=== PATIENT | male | born 1945 | race Caucasian/White ===

== ENCOUNTER → 2018-01-25 | Outpatient (CLI) | payer OTHER | LOC: SLEEPLAB 14:24 | DX: G47.33 Obstructive sleep apnea (adult) (pediatric) (principal) ==

== ENCOUNTER 2019-10-25 05:50 | Day surgery (SDC) | payer OTHER ==
[2019-10-17 13:12] LABS: URINE BILIRUBIN NEGATIVE (Negative); URINE BLOOD NEGATIVE (Negative); URINE CLARITY CLEAR; URINE COLOR YELLOW; URINE GLUCOSE-RANDOM* NEGATIVE (Negative); URINE KETONES NEGATIVE (Negative); URINE LEUKOCYTES-REFLEX NEGATIVE (Negative); URINE NITRITE-REFLEX NEGATIVE (Negative); URINE PROTEIN (DIPSTICK) NEGATIVE (Negative); URINE SPECIFIC GRAVITY 1.015 (1.005-1.035); URINE UROBILINOGEN 0.2 E.U./dl (0.2-1.0)
[2019-10-17 13:14] LABS: HEMATOCRIT 45.4 % (42.0-52.0); HEMOGLOBIN 14.9 gm/dL (14.0-18.0); MCH 30.4 pg (26.0-34.0); MCHC 32.8 g/dL (28.0-37.0); MCV 92.8 fL (80.0-100.0); RBC 4.89 mil/uL (4.50-6.00); RDW 14.2 % (10.5-14.5); WBC 5.9 thou/uL (4.0-11.0)
[2019-10-17 13:24] LABS: PROTIME 10.3 Seconds (9.3-11.4)
[2019-10-17 13:27] LABS: ALBUMIN 3.8 g/dL (3.4-5.0); CALCIUM 8.4 mg/dL (8.5-10.1); CREATININE 1.1 mg/dL (0.7-1.3); POTASSIUM 4.4 mmol/L (3.5-5.1)
[~2019-10-25] VITALS: Ht 185.4 cm; Wt 95.7 kg
--- NOTE | ~2019-10-25 | O ---
[facility] [place] [address] OPERATIVE REPORT Name: PRIETO ARIAS Room #: 150-7 [facility].R.#: [id number] Admission: 10/25/19 Attend Phys: Jeremy Espitia MD Discharge: Date of : 43 Report #: [id number] THIS REPORT FOR: cc: Hector Brenner MD, Rene P. MD Abraham,Jeremy Friedman MD ~ CC: Hector Espitia DATE OF SERVICE: 10/25/2019 PREOPERATIVE DIAGNOSIS: Right knee osteoarthritis. POSTOPERATIVE DIAGNOSIS: Right knee osteoarthritis. PROCEDURE: Right total knee arthroplasty using Navio robotic assistance. SURGEON: Jeremy Espitia MD. PULP OPERATOR: Kaitlin Salinas PA-C. INDICATIONS FOR PULP OPERATOR: Throughout the case, extensive retraction and manipulation of the knee was required. This was afforded to me by my under water assistant. ANESTHESIA: LMA with an adductor canal block. IMPLANTS: [employer] size 4 Legion cobalt chrome, size 7 posterior stabilized femur, a size 6 tibia, size 9 constrained polyethylene and size 35 patella. TOURNIQUET TIME: 59 minutes. ESTIMATED BLOOD LOSS: 25 mL. COMPLICATIONS: None. SPECIMENS: None. CONDITION UPON LEAVING THE OPERATING ROOM: Stable. INDICATIONS FOR PROCEDURE: The patient is a 74-year-old gentleman with severe right knee osteoarthritis. He failed conservative measures for this and elected for right total knee arthroplasty. DESCRIPTION OF PROCEDURE: Risks, benefits, alternatives, complications were discussed in detail with the patient including but not limited to risk of [facility] [address] [place] [address] OPERATIVE REPORT Name: PRIETO ARIAS Room #: 150-7 [facility] M.R.#: [id number] Admission: 10/25/19 Attend Phys: Jeremy Espitia MD Discharge: Date of : 43 Report #: [id number] anesthesia, risk of damage to nerves, arteries, blood vessels, risk for infection, bleeding, risk of continued knee pain, need for reoperation. Informed consent was obtained from the patient. Right knee was appropriately marked in the preoperative holding area. IV Ancef was given for preoperative antibiotics. Adductor canal block was placed by Anesthesia. He was brought to the operating room and placed in supine position on operating room table. LMA anesthesia was induced without complication. Tourniquet was placed on the right thigh. Right lower extremity was prepped and draped in normal sterile fashion. Timeout was performed properly identifying the patient and procedure as well as instrumentation and implants. All in the operating room were in agreement. Right lower extremity was exsanguinated, tourniquet was inflated. Tourniquet time was 59 minutes. Standard midline approach to knee was made with 10 blade through the skin. Dissection was taken down sharply to the fascia and deep flaps were developed medially and laterally. Fresh 10 blade was used to make a medial parapatellar arthrotomy and the knee was inspected. There was severe medial compartment osteoarthritis with moderate patellofemoral involvement. ACL and PCL were removed sharply. Reference pins were placed in the femur and the tibia and the knee was then digitally mapped using the [employer] robotic system. Intraoperative plan was made and sized to size 7 femur with a 6 tibia and a size 11 spacer. After acceptance of the intraoperative plan, the distal femoral cut was made with a Navio fortunato. The 4-in-1 cutting block was then placed on the femur. Anterior, posterior and chamfer cuts were made. Attention was turned to the tibia. Medial and lateral meniscus were removed with Bovie cautery. Tibial resection guide was pinned in place using the Navio for placement and tibial resection was made. After this, flexion and extension gaps were checked and found to be somewhat tight medially in flexion and a limited medial release was performed using the pie crust technique. This balanced the knee well. The tibia was sized, found to be a size 6. A size 6 tibial trial was placed, pinned and punched. A size 7 femoral trial was placed and box cut was made. This was then trialed with a size 9 polyethylene. Knee was taken through range of motion, found to have a millimeter laxity medially throughout range of motion and laterally demonstrated 2-3 mm of laxity and it was felt we could make up for this with a constrained implant. After this, 9 mm was resected from the posterior surface of the patella and a size 35 patellar trial button was placed. Knee was taken through range of motion, found to be stable, found to have good patellar tracking. Trial components were removed. Bony ends were thoroughly irrigated with normal saline. Final size 6 tibia, size 7 Legion cobalt chrome posterior stabilized femur and a size 35 patella were cemented in place using standard cementation techniques. While the cement cured, a periarticular injection consisting of morphine, ropivacaine, epinephrine and Toradol was placed around the knee joint capsule. After the cement cured, tourniquet was deflated. Hemostasis was obtained with Bovie cautery. A final size 9 constrained polyethylene was placed. A gram of vancomycin was placed deep in the joint. The fascia was closed with 0 Vicryl, skin was closed with 2-0 Vicryl, 3-0 Monocryl. Dermabond and a GWEN dressing was applied. The patient [address] [address] OPERATIVE REPORT Name: PRIETO ARIAS Room #: 150-7 [facility] M.R.#: [id number] Admission: 10/25/19 Attend Phys: Jeremy Espitia MD Discharge: Date of : 43 Report #: [id number] tolerated this procedure well and went to recovery room under care of anesthesia postoperatively. By: [id number] Jeremy Espitia MD /nt
[~2019-10-25 05:50] MED LIST: CHILDREN'S ASPI81 M1 PO; DORZOLAMIDE 2%10 ML OPHTHALMIC; FLOMAX0.4 MG PO; PROTONIX40 M2 PO
[2019-10-25 07:25] VITALS: BP 142/68
[2019-10-25 13:55] VITALS: BP 158/77
--- NOTE | 2019-10-25 15:09 | NUR ---
PT ADMITTED RELATED TO RIGHT TOTAL KNEE REPLACEMENT. CM REVIEWED CHART AND SPOKE WITH CARE TEAM. CM MET WIHT PT AND SPOUSE AT BEDSIDE THIS DAY. PT IS A&O X4. CM ROLE INTRODUCED. PT INDICATED HE LIVES IN A HOUSE WITH 2 STEPS TO ENTER AND 14 STEPS INSIDE. PT INDICATED HE HAS A FWW FOR USE UPON DC. PT INDICATED HE HAS AN OP PT APPOINTMENT AT [facility] [address] [facility] SET UP FOR MON, WED, FRI NEXT WEEK. CARE TEAM INDICATED PT IS MEDICALLY STABLE TO DC HOME THIS DAY. NO OTHER CM INTERVENTION INDICATED. CASE CLOSED.
[2019-10-25 15:39] VITALS: BP 158/77
--- NOTE | 2019-10-25 17:16 | NUR ---
PT RECEIVED FROM REC RM AT 1050 ALERT AND IN NO ACUTE DISTRESS. PT POSTOP RT TOTAL KNEE. GWEN DSNG DRY AND INTACT W/ POLAR ICE PACK IN PLACE TEDS AND SCD'S. PT DENIES PAIN AND NAUSEA. AMBULATED IN HALLS W/ THERAPY AND DID VERY WELL. DISCHARGED AT 1700 W/ ALL BELONGINGS.
--- NOTE | 2019-10-26 15:32 | EKG ---
[facility] [place] [address] ELECTROCARDIOGRAM REPORT Name: PRIETO ARIAS Room #: [facility] M..#: [id number] Admission: 10/25/19 Attend Phys: Jeremy Espitia MD Discharge: 10/25/19 Date of : 43 Report #: [id number] THIS REPORT FOR: cc: Hector Brenner MD, Rene P. MD Lundgren, Craig H. MD [facility] THIS REPORT FOR: //name// 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
== END 2019-10-25 17:00 | disposition home or self-care (01) ==
LOC: OR 05:50 → TBA 05:57 → OR 06:13 → 4S 11:23 → OR 12:14 → ENTRNSPT 16:56 → OR 17:00
PROVIDERS: Orthopaedic Surgery
DX: M17.11 Unilateral primary osteoarthritis, right knee (principal); M25.561 Pain in right knee; G47.30 Sleep apnea, unspecified; N40.0 Benign prostatic hyperplasia without lower urinary tract symptoms; K21.9 Gastro-esophageal reflux disease without esophagitis; Z98.890 Other specified postprocedural states; Z79.899 Other long term (current) drug therapy; Z98.41 Cataract extraction status, right eye; Z98.42 Cataract extraction status, left eye; Z87.891 Personal history of nicotine dependence; Z96.642 Presence of left artificial hip joint
CPT/HCPCS: 10102; 50010; 50101; 50415; 50954; 51130; 51225; 51320; 52001; 52282; 53000; 53078; 54118; 56527; 56528; 57095; 57103; 57110; 57127; 57180; 62110; 62900; 64039; 70005